=== PATIENT | male | born 1980 | race African-American/Black ===

== ENCOUNTER 2019-06-29 07:01 | Emergency (ER) | payer OTHER ==
[2019-06-29] MEDS ORDERED: diphenhydrAMINE 25 MG Cap PO ONE (07:21)
--- NOTE | 2019-06-29 07:38 | EDM.PDOC ---
ED [facility] GENERAL MEDICAL PROBLEM - General Chief Complaint: Skin Complaint Stated Complaint: itchying Time Seen by Provider: 06/29/19 07:20 Source of Information: Reports: Patient History Limitations: Reports: No Limitations - History of Present Illness INITIAL COMMENTS - FREE TEXT/NARRATIVE: Patient comes into the emergency department with complaints of itchiness. Patient states that the itchiness started 2 days ago. He describes it as periodical in nature. He denies having any flaky skin, rashes, fever, hives, nausea, breath, chest pain vomiting, or GI upset. Patient denies any recent changes in food, deodorant, or detergent. He also declines any new medications or taking any [id number] medications for his itchiness. Onset: Sudden Quality: Reports: Other Severity: Mild Improves with: Reports: None Worsens with: Reports: None Associated Symptoms: Reports: No Other Symptoms ED ROS GENERAL - Review of Systems Review Of Systems: Comprehensive ROS is negative, except as noted in HPI. Constitutional: Reports: No Symptoms HEENT: Reports: No Symptoms Respiratory: Reports: No Symptoms Cardiovascular: Reports: No Symptoms Endocrine: Reports: No Symptoms GI/Abdominal: Reports: No Symptoms : Reports: No Symptoms Musculoskeletal: Reports: No Symptoms Neurological: Reports: No Symptoms Psychiatric: Reports: No Symptoms Hematologic/Lymphatic: Reports: No Symptoms ED EXAM, GENERAL - Physical Exam Exam: See Below Exam Limited By: No Limitations General Appearance: Alert, WD/WN, No Apparent Distress Head: Atraumatic, Normocephalic Neck: Normal Inspection, Supple, Non-Tender, Full Range of Motion Respiratory/Chest: No Respiratory Distress, Lungs Clear, Normal Breath Sounds, No Accessory Muscle Use, Chest Non-Tender Back Exam: Normal Inspection, Full Range of Motion Extremities: Normal Inspection, Normal Range of Motion, Non-Tender, No Pedal Edema, Normal Capillary Refill Neurological: Alert, Oriented, Normal Cognition, Normal Gait Psychiatric: Normal Affect, Normal Mood Skin Exam: Warm, Dry, Intact Course - Orders/Labs/Meds Meds: Medications Discontinued Medications Generic Name Dose Route Start Last Admin Trade Name Freq PRN Reason Stop Dose Admin Diphenhydramine HCl 25 mg 06/29/19 07:21 Benadryl PO 06/29/19 07:22 ONETIME ONE Departure - Departure Time of Disposition: 07:45 Disposition: Home, Self-Care 01 Condition: Good Clinical Impression: Pruritic dermatitis - Discharge Information *PRESCRIPTION DRUG MONITORING PROGRAM REVIEWED*: Not Applicable *COPY OF PRESCRIPTION DRUG MONITORING REPORT IN PATIENT ANDERSON: Not Applicable Instructions: Allergies, Adult, [id number], Contact Dermatitis, [id number] , Hypertension, [id number] Forms: ED Department Discharge Additional Instructions: 1. rest 2. increase your water intake 3. Can Take over the counter Benerdryl 25mg-50mg every 4 hours as needed for rash or itching. Can also try over the counter creams or lotions to help with itchiness 4. Activity and diet as tolerated 5. Can take over the counter Tylenol or ibuprophen for any pain or discomfort 6. Follow up with PCP if symptoms continue, return, or progress. You should also have your BP checked and monitored with your PCP 7. Call with any questions or concerns - Assessment/Plan Assessment:: 1. Pruritus Plan: 1. Benadryl p.o. given in the emergency department 2. Education regarding OTC Medications creams for itching 3. Patient and nursing staff was updated regarding the plan of care 4. Education provided the patient regarding activity, diet, rest, over-the- counter medication modalities, and follow-up care was provided 5. Patient is agreeable to the above plan of care 6. All questions and concerns were addressed with the patient and family prior to discharge
== END 2019-06-29 07:54 | disposition home or self-care (01) ==
LOC: VM.ED 07:01
DX: L30.8 Other specified dermatitis (principal)
CPT/HCPCS: 99282; A9270-GY